=== PATIENT | female | born 1970 | race Caucasian/White ===

== ENCOUNTER 2022-11-10 12:21 | Outpatient (CLI) | payer OTHER, SELFPAY ==
--- NOTE | ~2022-11-10 | CT_ITS ---
CT of the Abdomen and Pelvis: Indication: Adrenal gland tumor Technique: 2.5 mm axial scans were obtained through the abdomen and pelvis prior to and following in travenous administration of 100 cc of Omnipaque 350. Dose reduction technique was used on this scan b y utilizing automated exposure control and iterative reconstruction technique. The dose-length produc t (DLP) was 2598.28 mGy-cm. Findings: Scans through the lung bases are unremarkable. The liver, spleen, pancreas, right adrenal gland, and kidneys are within normal limits. There is a 1. 5 cm low-density left adrenal nodule, with precontrast Hounsfield units of 4. Cholecystectomy clips a re present. No evidence of aortic aneurysm. No lymphadenopathy. No bowel obstruction or bowel wall thickening. There is no evidence to suggest acute appendicitis. Images through the pelvis were performed. Urinary bladder unremarkable. No adnexal mass seen. Trace f ree fluid present in the pelvis. Impression: 1.5 cm low-density left adrenal nodule, consistent with benign adenoma. Trace free fluid in the pelvis, nonspecific. Reviewed, dictated and finalized at location . Impression: 1.5 cm low-density left adrenal nodule, consistent with benign adenoma. Trace free fluid in the pelvis, nonspecific.
--- NOTE | ~2022-11-10 | MR_ITS ---
EXAMINATION: MR pelvis wo/w con DATE: 11/10/2022 15:22 INDICATION: Fluid within the endometrial cavity TECHNIQUE: Magnetic resonance imaging (MRI) of the pelvis was performed without and with 20 mL Multih ance intravenous contrast. Full-field sequences of the pelvis included axial and coronal T2-weighted SS FSE, coronal 2D FIESTA, axial T1-weighted FSPGR, axial dual-echo T1-weighted FSPGR and axial T1 we ighted LAVA. Small field of view sequences included axial, sagittal and coronal T2-weighted FSE cent ered on the uterus and adnexa. Postcontrast sequences included a time course axial T1-weighted LAVA with full-field of view of the pelvis. COMPARISON: CT abdomen pelvis dated 11/10/2022 FINDINGS: The visualized portions of the lower pole of the left kidney and the caudal aspect of the stomach or esophagus aorta and right kidney. Normal. Visualized portion of the bowels including the appendix are normal. There is mild trabeculation of the meniscal surface of the bladder without significant wall thickening. Small cleft extending anteriorly from the endometrial complex at the lower uterine segmen t with a few foci of susceptibility artifact suggesting sequela of prior section. Endometria l complex measures 10 mm in thickness. Uterus is otherwise unremarkable on the larger irivm-bt-loel i mages. There is artifact along portions of the myometrium on the small [id number] images likely re lated to adjacent peristalsing bowel. There are multiple nabothian cysts at the cervix, the largest m easuring 9 mm in maximal diameter. 11 mm left adnexal cyst. Right adnexa is unremarkable. Approximate ly 2.5 cm posterior to the right ovary is a 3.7 x 2.9 x 3.1 cm T2 hyperintense nonenhancing simple ap pearing cyst situated in the presacral fat along the posterior margin of the cervix in the right side of the rectosigmoid junction. No free fluid in the pelvis. No pathologically enlarged pelvic or ingu inal lymphadenopathy. Mild lower lumbar spondylosis with disc desiccation, mild disc height loss and disc bulge resulting in mild central canal stenosis at L4-L5. IMPRESSION: 1. Endometrial complex measures 10 mm in thickness which would be abnormal in a postmenopausal woman with history of vaginal bleeding but would remain within normal limits. Pre-/perimenopausal woman, po stmenopausal woman on hormone replacement therapy borderline thickness in the absence of vaginal blee ding. 2. section scar at the anterior lower uterine segment and multiple nabothian cysts at the ce rvix. 3. Nonspecific 3.7 cm simple appearing cyst situated in the presacral fat on the posterior margin of the cervix and right-sided the rectosigmoid junction. Reviewed, dictated and finalized at location A. IMPRESSION: 1. Endometrial complex measures 10 mm in thickness which would be abnormal in a postmenopausal woman with history of vaginal bleeding but would remain within normal limits. Pre-/perimenopausal woman, postmenopausal woman on hormone repla cement therapy borderline thickness in the absence of vaginal bleeding. 2. section scar at the anterior lower uterine segment and multiple nab othian cysts at the cervix. 3. Nonspecific 3.7 cm simple appearing cyst situated in the presacral fat on th e posterior margin of the cervix and right-sided the rectosigmoid junction.
[2022-11-10 13:03] LABS: Estimated Glomerular Filt Rate > 60
== END 2022-11-10 12:22 ==
LOC: MICIMG 12:26
PROVIDERS: PCP Family Medicine; Visit Provider Family Medicine
DX: N85.9 Noninflammatory disorder of uterus, unspecified (principal); E27.8 Other specified disorders of adrenal gland; D35.02 Benign neoplasm of left adrenal gland
CPT/HCPCS: 72197; 74178; A9577; Q9967

== ENCOUNTER → 2022-11-17 14:37 | Outpatient (CLI) | payer OTHER, SELFPAY ==
--- NOTE | ~2022-11-17 | US_ITS ---
Pelvic ultrasound. Clinical History: Abnormal uterine bleeding Technique: Realtime transabdominal and transvaginal scanning of the pelvis was performed. Color flow Doppler and Doppler spectral analysis were performed. Findings: The uterus is anteverted. The endometrial stripe has a thickness of approximately 6 mm. No focal mass is identified. The right ovary is not visualized. No significant right ovarian or adnexal mass is seen. The left ovary measures 2.3 x 2.1 x 1.7 cm. Left ovarian cyst measures 1.1 cm in diameter. There is a 3.3 x 3.4 x 3.0 cm cystic mass versus loculated fluid in the cul-de-sac. Impression: 3.3 x 3.4 x 3.0 cm probable cystic mass versus loculated fluid in the pelvic cul-de-sac. This correla anila with cystic lesion seen on recent MR dated 11/10/2022. Endometrial stripe is upper limits of normal to borderline thickened for a postmenopausal woman. Reviewed, dictated and finalized at [facility]. Impression: 3.3 x 3.4 x 3.0 cm probable cystic mass versus loculated fluid in the pelvic cu l-de-sac. This correlates with cystic lesion seen on recent MR dated 11/10/2022. Endometrial stripe is upper limits of normal to borderline thickened for a post menopausal woman.
== END ==
PROVIDERS: Visit Provider Nurse Practitioner Family
DX: N93.9 Abnormal uterine and vaginal bleeding, unspecified (principal)
CPT/HCPCS: 76830; 76856

== ENCOUNTER 2023-08-16 15:21 | Outpatient (CLI) | payer OTHER, SELFPAY ==
--- NOTE | ~2023-08-16 | MR_ITS ---
EXAMINATION: MR MRCP wo/w con/w 3D wo ind DATE: 08/16/2023 16:38 INDICATION: Abnormal CT scan of the gastrointestinal tract TECHNIQUE: Magnetic resonance imaging (MRI) of the abdomen was performed without and with 20 mL Multi onesimo intravenous contrast. Sequences included coronal T2-weighted SS-FSE, coronal T2-weighted FS SS- FSE, coronal T2-weighted FS FIESTA, axial T2-weighted FS FIESTA, axial T2-weighted FIESTA, sagittal T 2-weighted SS-FSE, axial T1-weighted dual-echo FSPGR, axial T2-weighted SS-FSE, axial T1-weighted LAV A, axial T2-weighted STIR FSE. Thick-slab T2-weighted FRFSE-XL images were obtained for magnetic reso nance cholangiopancreatography (MRCP). Rotating maximum intensity projection 3-D reconstructions of t he volumetric data were created by the technologist. Postcontrast sequences included a time course of axial T1-weighted LAVA. COMPARISON: CT dated 11/10/2022 FINDINGS: ABDOMEN MRI: Heart size is normal. No pericardial or pleural effusion. Diffuse hepatic steatosis with signal dropo ut on opposed phase imaging. Susceptibility artifact associated with cholecystectomy clips at the gal lbladder fossa. Spleen, pancreas, bilateral kidneys and right adrenal gland are normal. No peripancre atic inflammatory stranding to suggest acute pancreatitis. Intracellular lipid-containing 1.3 cm left adrenal adenoma with signal dropout on opposed phase imaging. The visualized portions of bowels are unremarkable with no obstruction.. No pathologically enlarged abdominal or upper pelvic lymphadenopat hy. Mild lumbar spondylosis with normal bone marrow signal throughout. ABDOMEN MRCP: Common bile duct is normal measuring up to 4-5 mm in maximal diameter. No intrahepatic biliary ductal dilation. No intraluminal filling defects to suggest choledocholithiasis. The main pancreatic duct i s also normal measuring <2 mm in maximal diameter. IMPRESSION: 1. 1.3 cm left adrenal adenoma. Otherwise unremarkable abdominal MRI/MRCP. Reviewed, dictated and finalized at location B. PHONE OPERATOR
== END 2023-08-16 15:22 ==
LOC: GOSHIMG 15:24
PROVIDERS: PCP Family Medicine; Visit Provider Internal Medicine
DX: D35.02 Benign neoplasm of left adrenal gland (principal); K85.00 Idiopathic acute pancreatitis without necrosis or infection; R93.3 Abnormal findings on diagnostic imaging of other parts of digestive tract
CPT/HCPCS: 74183; 76376; A9577